=== PATIENT | female | born 1950 | race Caucasian/White ===

== ENCOUNTER 2020-07-13 23:59 | Inpatient (IN) | payer OTHER ==
[~2020-07-13] VITALS: Ht 154.9 cm; Wt 54.9 kg
[2020-07-14] MEDS ORDERED: LORAZEPAM2 MG PO (10:33)
[2020-07-14] MEDS ORDERED: OXYCODONE HCL15 MG PO (10:36)
[2020-07-14] MEDS ORDERED: TENORMIN 25 MG25 MG PO (10:37)
[2020-07-14] MEDS ORDERED: ESTRACE 1 MG TAB1 MG PO (10:38)
[2020-07-14] MEDS ORDERED: ASPIRIN EC81 MG PO (11:28)
[2020-07-14 15:15] LABS: HEMOGLOBIN 14.6 gm/dl (12.3-15.3); RED BLOOD COUNT 5.12 M/UL (4.00-5.10); WHITE BLOOD COUNT 2.9 K/UL (4.5-11.0)
[2020-07-14 15:37] LABS: BUN/CREATININE RATIO 13 (0-10)
[2020-07-15 02:59] LABS: HEMOGLOBIN 14.5 gm/dl (12.3-15.3); RED BLOOD COUNT 5.14 M/UL (4.00-5.10)
[2020-07-15 03:00] LABS: WHITE BLOOD COUNT 1.9 K/UL (4.5-11.0)
[2020-07-15 03:33] LABS: BUN/CREATININE RATIO 11 (0-10)
[2020-07-16 03:03] LABS: HEMOGLOBIN 13.4 gm/dl (12.3-15.3); RED BLOOD COUNT 4.74 M/UL (4.00-5.10)
[2020-07-16 03:39] LABS: BUN/CREATININE RATIO 19 (0-10)
[2020-07-17 03:13] LABS: HEMOGLOBIN 14.3 gm/dl (12.3-15.3); RED BLOOD COUNT 5.11 M/UL (4.00-5.10)
[2020-07-17 03:40] LABS: BUN/CREATININE RATIO 30 (0-10)
[2020-07-17 03:44] LABS: WHITE BLOOD COUNT 5.1 K/UL (4.5-11.0)
[2020-07-18 09:14] LABS: HEMOGLOBIN 15.2 gm/dl (12.3-15.3); RED BLOOD COUNT 5.3 M/UL (4.00-5.10); WHITE BLOOD COUNT 6.9 K/UL (4.5-11.0)
[2020-07-18 09:32] LABS: BUN/CREATININE RATIO 22 (0-10)
[2020-07-19 02:20] LABS: HEMOGLOBIN 14.5 gm/dl (12.3-15.3); RED BLOOD COUNT 5.26 M/UL (4.00-5.10); WHITE BLOOD COUNT 6.7 K/UL (4.5-11.0)
[2020-07-19 03:54] LABS: BUN/CREATININE RATIO 22 (0-10)
[2020-07-19] MEDS ORDERED: LOPRESSOR 25 MG25 MG PO (12:29)
== END 2020-07-19 15:00 | disposition home or self-care (01) | DRG 308 ==
LOC: PROG CARE 23:59
PROVIDERS: ADMIT Internal Medicine
PROC: XW13325 Transfusion of Convalescent Plasma (Nonautologous) into Peripheral Vein, Percutaneous Approach, New Technology Group 5 (ICD-10-PCS; principal; 2020-07-14)
PROC: XW033E5 Introduction of Remdesivir Anti-infective into Peripheral Vein, Percutaneous Approach, New Technology Group 5 (ICD-10-PCS; 2020-07-14)
DX: I49.5 Sick sinus syndrome (principal); U07.1 COVID-19; E87.1 Hypo-osmolality and hyponatremia; I48.92 Unspecified atrial flutter; I48.91 Unspecified atrial fibrillation; F41.9 Anxiety disorder, unspecified; Z90.49 Acquired absence of other specified parts of digestive tract; Z90.710 Acquired absence of both cervix and uterus; Z88.6 Allergy status to analgesic agent; Z88.5 Allergy status to narcotic agent; Z88.2 Allergy status to sulfonamides; Z88.8 Allergy status to other drugs, medicaments and biological substances; R06.02 Shortness of breath; R00.2 Palpitations; I45.6 Pre-excitation syndrome; M54.9 Dorsalgia, unspecified; G89.29 Other chronic pain
CPT/HCPCS: ECHO; 36415; 71045; 80048; 80053; 80076; 81001; 82550; 82553; 83735; 84439; 84443; 84484; 85027; 86900; 86901; 86927; 87086; 93005; 93270; 93306; J0456; J1100; J1335; J1650; J7030